=== PATIENT | male | born 1935 | race Caucasian/White ===

== ENCOUNTER → 2020-10-26 12:46 | Outpatient (CLI) | payer MEDICARE, SELFPAY ==
--- NOTE | 2020-10-31 10:24 | PM.PFT.1 ---
Pulmonary Function Test Referral & Results Date Patient Seen: 10/26/20 Requesting provider: Adriana Hua Results: The spirometry demonstrates an FVC of 3.65 L which is 80% of predicted. The FEV1 was measured at 2.23 L which is 69% of predicted. The FEV1/FVC ratio was 61 which is 86% of predicted. Following the administration of bronchodilator there was 15% improvement in FEV1 and then 83% improvement in FEF 25-75%. Lung volumes show an SVC of 3.70 L which is 75% of predicted. The diffusing capacity was measured at 23.5 for which is 62% of predicted. No hemoglobin value was provided, so no correction for potential anemia could be made, if appropriate. 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
== END ==
PROVIDERS: Referring Provider Physician Assistant; Visit Provider Physician Assistant
DX: R05 Cough (principal); F17.200 Nicotine dependence, unspecified, uncomplicated; J98.8 Other specified respiratory disorders
CPT/HCPCS: 94060; 94726; 94729